=== PATIENT | male | born 2000 | race African-American/Black ===

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

== ENCOUNTER 2021-02-25 01:45 | Emergency (ER) | payer OTHER ==
[2021-02-25 01:50] VITALS: BP 138/92; PULSE 59; RESP 18; TEMP 98.1
[2021-02-25] MEDS ORDERED: ACET/COD 300 MG/30 MG STARTER PACK 6 TAB BTL PO STA (02:41)
[2021-02-25] MEDS ORDERED: HYDROcodone/APAP 7.5-325MG 1 EACH TAB PO ONE (02:41)
[2021-02-25] MEDS ORDERED: AMOXIC-POT CLAV 875MG STARTER PACK 2 TAB BTL PO STA (02:41)
--- NOTE | 2021-02-25 02:45 | ED ---
General Adult HPI - General Chief complaint: Dental/Oral Stated complaint: Tooth abscess Time Seen by Provider: 02/25/21 01:55 Source: patient Mode of arrival: ambulatory Limitations: no limitations - History of Present Illness Initial comments: 21-year-old male patient presents to the emergency department today for evaluation of left upper dental pain. States he does have a dentist appointment later today but the pain became much worse about 30 minutes prior to arrival. Denies any facial swelling. Denies trismus or difficulty swallowing. Denies any fever or chills. Denies any nausea or vomiting. States he has been taking Tylenol Motrin which has been helping up until this point. Denies being on any antibiotics. - Related Data Previous Rx's Medication Instructions Recorded Amoxic-Pot Clav 875-125Mg 1 tab PO Q12HR #20 tablet 02/25/21 [Augmentin 875-125] Allergies Allergy/AdvReac Type Severity Reaction Status Date / Time No Known Allergies Allergy Verified 02/25/21 01:50 Review of Systems ROS Statement: Those systems with pertinent positive or pertinent negative responses have been documented in the HPI. ROS Other: All systems not noted in ROS Statement are negative. Past Medical History Past Medical History: No Reported History History of Any Multi-Drug Resistant Organisms: None Reported Past Surgical History: Orthopedic Surgery Additional Past Surgical History / Comment(s): neck surgery Past Psychological History: Anxiety, PTSD Smoking Status: Vaper Past Alcohol Use History: None Reported Past Drug Use History: None Reported General Exam Limitations: no limitations General appearance: alert, other (this is a well-developed, well-nourished adult male patient in mild distress related to pain.) ENT exam: Present: normal oropharynx, mucous membranes moist, other (there is broken tooth number1. No surrounding gingival erythema or hyperplasia. No evidence of drainable abscess.no facial swelling.) Respiratory exam: Present: normal lung sounds bilaterally. Absent: respiratory distress, wheezes, rales, rhonchi, stridor Cardiovascular Exam: Present: regular rate, normal rhythm, normal heart sounds. Absent: systolic murmur, diastolic murmur, rubs, gallop, clicks Neurological exam: Present: alert, oriented X3, CN II-XII intact Psychiatric exam: Present: normal affect, normal mood Skin exam: Present: warm, dry, intact, normal color. Absent: rash Course Vital Signs 02/25/21 01:48 Temperature 98.1 F Pulse Rate 59 L Respiratory 18 Rate Blood Pressure 138/92 O2 Sat by Pulse 100 Oximetry Medical Decision Making - Medical Decision Making 21-year-old male patient presents the emergency department today for evaluation of left upper dental pain. Physical examination did reveal fractured tooth #1. No surrounding gingival erythema or hyperplasia, no evidence of drainable abscess. Patient is given pain medication and started on Augmentin. He does have an appointment with the dentist later today, he is urged to keep this appointment. Return parameters discussed in detail. He verbalizes understanding and agrees this plan. My attending is Dr. Cuadra. Disposition Clinical Impression: Pain, dental Disposition: HOME SELF-CARE Condition: Good Instructions (If sedation given, give patient instructions): Dental Abscess (ED), Toothache (ED) Additional Instructions: Output that she later today as you have planned. Take medications as directed. Return to the emergency department for any new, worsening, or concerning symptoms. Prescriptions: Amoxic-Pot Clav 875-125Mg [Augmentin 875-125] 1 tab PO Q12HR #20 tablet Is patient prescribed a controlled substance at d/c from ED?: No Referrals: None,Stated [Primary Care Provider] - 1-2 days Time of Disposition: 02:44
== END 2021-02-25 03:06 | disposition home or self-care (01) ==
LOC: EC 01:45
DX: S02.5XXA Fracture of tooth (traumatic), initial encounter for closed fracture (principal); F41.9 Anxiety disorder, unspecified; F17.290 Nicotine dependence, other tobacco product, uncomplicated; X58.XXXA Exposure to other specified factors, initial encounter
CPT/HCPCS: 99282